=== PATIENT | female | born 1950 | race Caucasian/White ===

== ENCOUNTER → 2017-10-25 | Outpatient (CLI) | payer MEDICARE, BC ==
--- NOTE | 2017-10-25 18:10 | Diagnostic Imaging Report ---
PROCEDURE:X-RAY ABDOMEN - KUB COMPARISON:None. INDICATIONS:FOLLOW UP LEFT KIDNEY STONE FINDINGS: One view of the abdomen (AP supine) Questionable 4 mm calcification projected over the inferior pole of the left kidney. There is an adjacent 2 mm calcification, also projected over the inferior pole left kidney. A 3 mm calcification is projected over the inferior pole the right kidney are There are no dilated loops of bowel to suggest obstruction. No masses. No evidence of free air. No acute osseous abnormalities are present. CONCLUSION: Small calcifications, measuring up to 4 mm, are projected over the inferior poles of both kidneys. No stones projected over the expected locations of the ureters. Dictated by: Dash Gage M.D. on 10/25/2017 at 18:14 Electronically approved by: Dash Gage M.D. on 10/25/2017 at 18:14
== END ==
LOC: RAD 15:58
PROVIDERS: ATTEND Urology
DX: N20.0 Calculus of kidney (principal)
CPT/HCPCS: 74018

== ENCOUNTER → 2018-02-04 | Outpatient (CLI) | payer MEDICARE, BC ==
--- NOTE | 2018-02-05 16:23 | Diagnostic Imaging Report ---
Exam: Abdominal film Clinical History: Calculus of kidney Comparison: 10/25/2014 DISCUSSION: Punctate bilateral renal calculi are significantly changed relative to 10/25/2017, measuring up to 4 mm on the left and 3 mm on the right. No suspicious calcifications project over the expected ureteral courses. Bowel gas pattern is nonobstructive. Regional skeletal structures are intact. IMPRESSION: Stable small bilateral renal calculi relative to 10/25/2017. Signed by: Dr. Maicol Sinclair M.D. on 02/05/2018 4:20 PM
== END ==
LOC: RAD 13:28
PROVIDERS: ATTEND Urology
DX: N20.0 Calculus of kidney (principal)
CPT/HCPCS: 74018